=== PATIENT | male | born 1965 | race Caucasian/White ===

== ENCOUNTER 2016-10-25 05:01 | Emergency (ER) | payer OTHER ==
[~2016-10-25] VITALS: Ht 180.3 cm; Wt 89.8 kg
[2016-10-25 07:35] VITALS: BP 140/84
== END 2016-10-25 07:35 | disposition home or self-care (01) ==
LOC: ED 05:01
DX: H16.8 Other keratitis (principal)

== ENCOUNTER 2017-02-12 20:32 | Emergency (ER) | payer OTHER ==
[~2017-02-12] VITALS: Ht 180.3 cm; Wt 93.0 kg
[2017-02-13 00:26] VITALS: BP 129/78
== END 2017-02-13 | disposition home or self-care (01) ==
LOC: ED 20:32
DX: J20.9 Acute bronchitis, unspecified (principal); F17.210 Nicotine dependence, cigarettes, uncomplicated; Z71.6 Tobacco abuse counseling
CPT/HCPCS: 99406; J7512; J7613; J7644; Q0092

== ENCOUNTER 2017-05-07 18:25 | Emergency (ER) | payer OTHER ==
[~2017-05-07] VITALS: Ht 180.3 cm; Wt 92.1 kg
[2017-05-07 18:30] VITALS: Ht 180.3 cm; Wt 92.1 kg
[2017-05-07 20:30] VITALS: BP 141/84
== END 2017-05-07 20:40 | disposition home or self-care (01) ==
LOC: ED 18:25
DX: B34.9 Viral infection, unspecified (principal); J98.01 Acute bronchospasm
CPT/HCPCS: 87804; J1885; J7512; J7613; J7644

== ENCOUNTER 2017-05-19 12:02 | Emergency (ER) | payer OTHER ==
[~2017-05-19] VITALS: Ht 180.3 cm; Wt 93.0 kg
[2017-05-19 12:21] VITALS: BP 131/85; Ht 180.3 cm; Wt 93.0 kg
== END 2017-05-19 13:45 | disposition home or self-care (01) ==
LOC: ED 12:02
DX: S50.12XA Contusion of left forearm, initial encounter (principal); W22.8XXA Striking against or struck by other objects, initial encounter; Y93.89 Activity, other specified; Y99.8 Other external cause status; Y92.89 Other specified places as the place of occurrence of the external cause

== ENCOUNTER 2017-07-28 18:09 | Emergency (ER) | payer OTHER ==
[~2017-07-28] VITALS: Ht 180.3 cm; Wt 90.7 kg
[2017-07-28 18:14] VITALS: Ht 180.3 cm; Wt 90.7 kg
[2017-07-28 19:56] VITALS: BP 137/76
== END 2017-07-28 19:56 | disposition home or self-care (01) ==
LOC: ED 18:09
DX: R07.89 Other chest pain (principal); R05 Cough; R50.9 Fever, unspecified; R11.0 Nausea
CPT/HCPCS: J1885; Q0092

== ENCOUNTER 2017-08-05 00:34 | Emergency (ER) | payer OTHER ==
[~2017-08-05] VITALS: Ht 180.3 cm; Wt 98.0 kg
[2017-08-05 02:52] LABS: BASOPHIL % 0.4 % (0-2); PLATELET COUNT 294 x10^3mcL (130-400); RED CELL DISTRIBUTION WIDTH 14.4 % (11.5-14.5)
[2017-08-05 02:58] LABS: CALCIUM 7.9 mg/dL (8.5-10.1); CARBON DIOXIDE 29.2 mmol/L (21-32); CHLORIDE SERUM 105 mmol/L (98-107); CREATININE SERUM 0.9 mg/dL (0.7-1.3); GFR1 > 60 mL/min; GLUCOSE SERUM 112 mg/dL (74-106); POTASSIUM SERUM 3.7 mmol/L (3.5-5.1); SODIUM SERUM 139 mmol/L (136-145)
[2017-08-05 03:03] LABS: ALKALINE PHOSPHATASE 113 U/L (46-116); ALT/SGPT 81 U/L (16-63); AST/SGOT 26 U/L (15-37); BILIRUBIN TOTAL 0.31 mg/dL (0.20-1.00)
[2017-08-05 03:06] LABS: ALBUMIN 2.8 g/dL (3.4-5.0); TOTAL PROTEIN, SERUM 5.8 g/dL (6.4-8.2)
[2017-08-05 06:26] VITALS: BP 138/79
== END 2017-08-05 07:13 | disposition home or self-care (01) ==
LOC: ED 00:34
PROVIDERS: Emergency Medicine
DX: J20.9 Acute bronchitis, unspecified (principal); F17.210 Nicotine dependence, cigarettes, uncomplicated
CPT/HCPCS: 36415; 83880; 85378; 87804; J1100; J7620; Q9967

== ENCOUNTER 2018-02-07 01:01 | Emergency (ER) | payer OTHER ==
[2018-02-07 01:50] VITALS: BP 133/85
== END 2018-02-07 01:50 | disposition home or self-care (01) ==
LOC: ED 01:01
DX: S40.861A Insect bite (nonvenomous) of right upper arm, initial encounter (principal); W57.XXXA Bitten or stung by nonvenomous insect and other nonvenomous arthropods, initial encounter; Y93.89 Activity, other specified; Y92.89 Other specified places as the place of occurrence of the external cause; Y99.8 Other external cause status
CPT/HCPCS: J1100

== ENCOUNTER 2018-02-22 12:24 | Emergency (ER) | payer OTHER ==
[~2018-02-22] VITALS: Ht 180.3 cm; Wt 91.2 kg
[2018-02-22 12:40] VITALS: BP 122/60; Ht 180.3 cm; Wt 91.2 kg
== END 2018-02-22 14:05 | disposition left against medical advice (07) ==
LOC: ED 12:24
DX: Z53.21 Procedure and treatment not carried out due to patient leaving prior to being seen by health care provider (principal)

== ENCOUNTER 2018-02-24 02:32 | Emergency (ER) | payer OTHER ==
[~2018-02-24] VITALS: Ht 180.3 cm; Wt 92.1 kg
[2018-02-24 02:50] VITALS: Ht 180.3 cm; Wt 92.1 kg
[2018-02-24 03:31] VITALS: BP 149/81
== END 2018-02-24 03:34 | disposition home or self-care (01) ==
LOC: ED 02:32
DX: S60.561A Insect bite (nonvenomous) of right hand, initial encounter (principal); Z90.49 Acquired absence of other specified parts of digestive tract; Z98.890 Other specified postprocedural states; W57.XXXA Bitten or stung by nonvenomous insect and other nonvenomous arthropods, initial encounter; Y93.89 Activity, other specified; Y92.89 Other specified places as the place of occurrence of the external cause; Y99.8 Other external cause status

== ENCOUNTER 2018-05-13 09:46 | Emergency (ER) | payer OTHER ==
[2018-05-13 12:47] VITALS: BP 145/106
== END 2018-05-13 12:47 | disposition home or self-care (01) ==
LOC: ED 09:46
DX: S46.912A Strain of unspecified muscle, fascia and tendon at shoulder and upper arm level, left arm, initial encounter (principal); J40 Bronchitis, not specified as acute or chronic; Z90.49 Acquired absence of other specified parts of digestive tract; Z98.890 Other specified postprocedural states; X58.XXXA Exposure to other specified factors, initial encounter; Y93.89 Activity, other specified; Y92.89 Other specified places as the place of occurrence of the external cause; Y99.8 Other external cause status
CPT/HCPCS: Q0092

== ENCOUNTER 2018-05-18 15:58 | Emergency (ER) | payer OTHER ==
[~2018-05-18] VITALS: Ht 180.3 cm; Wt 93.4 kg
[2018-05-18 16:33] VITALS: Ht 180.3 cm; Wt 93.4 kg
[2018-05-18 18:47] VITALS: BP 122/86
== END 2018-05-18 18:47 | disposition home or self-care (01) ==
LOC: ED 15:58
DX: N20.0 Calculus of kidney (principal); Z87.442 Personal history of urinary calculi; Z90.49 Acquired absence of other specified parts of digestive tract; Z98.890 Other specified postprocedural states
CPT/HCPCS: J1885

== ENCOUNTER 2019-10-13 21:27 | Emergency (ER) | payer OTHER ==
[~2019-10-13] VITALS: Ht 180.3 cm; Wt 90.7 kg
[2019-10-13 21:38] VITALS: Ht 180.3 cm; Wt 90.7 kg
[2019-10-13 22:50] VITALS: BP 124/84
== END 2019-10-13 22:50 | disposition home or self-care (01) ==
LOC: ED 21:27
DX: S81.851A Open bite, right lower leg, initial encounter (principal); Z90.49 Acquired absence of other specified parts of digestive tract; Z87.442 Personal history of urinary calculi; Z98.890 Other specified postprocedural states; W54.0XXA Bitten by dog, initial encounter; Y93.89 Activity, other specified; Y92.89 Other specified places as the place of occurrence of the external cause; Y99.8 Other external cause status
CPT/HCPCS: 90715

== ENCOUNTER 2019-10-31 23:43 | Emergency (ER) | payer OTHER ==
[~2019-10-31] VITALS: Ht 180.3 cm; Wt 91.3 kg
[2019-10-31 23:49] VITALS: Ht 180.3 cm; Wt 91.3 kg
[2019-11-01 03:13] VITALS: BP 114/62
[2019-11-01 03:24] LABS: UA SPECIFIC GRAVITY >=1.030 (1.005-1.035); microscopic required? YES; urine erythrocyte 3+ (NEGATIVE)
== END 2019-11-01 03:13 | disposition left against medical advice (07) ==
LOC: ED 23:43
PROVIDERS: Emergency Medicine
DX: R10.9 Unspecified abdominal pain (principal); R30.0 Dysuria; R31.9 Hematuria, unspecified; Z90.49 Acquired absence of other specified parts of digestive tract; Z98.890 Other specified postprocedural states; Z87.442 Personal history of urinary calculi